=== PATIENT | male | born 1965 | race Hispanic/Latino ===

== ENCOUNTER 2017-06-26 13:24 | Emergency (ER) | payer SELFPAY ==
[2017-06-26] MEDS ORDERED: SMZ./TMP. 800/160 MG TABLET ONE (15:02)
--- NOTE | 2017-06-26 15:10 | EDPHYS ---
Physician Documentation [facility] Name: Jorgito Cox Age: 52 yrs Sex: Male : 1965 Arrival Date: 06/26/2017 Time: 13:25 Bed 12 Private MD: ED Physician Fox Diehl HPI: 06/26 15:05 This 52 yrs old Male presents to ER via Ambulatory with complaints of Insect kb Bite. 15:05 The patient was bitten on the right lateral aspect of neck, by unknown insect. Onset: kb The symptoms/episode began/occurred 3 day(s) ago. Animal information: Patient/Caregiver not able to describe the spider. Secondary to the bite the patient reports erythema, swelling. Associated signs and symptoms: Pertinent positives: erythema at site, swelling at site, Pertinent negatives: bony tenderness, fever, fluctuance, loss of consciousness, motor deficit, numbness distal to wound, pain at site, suspected foreign body, tenderness. Severity of symptoms: At their worst the symptoms were mild, in the emergency department the symptoms are unchanged. The patient has not experienced similar symptoms in the past. The patient has not recently seen a physician. Pt reports he was bit by unknown insect on Tuesday while at work. Area was reddened and swollen at the time, now the redness has spread a bit. States he has noticed another reddened area near right clavicle, but does not think he was bitten there. . Historical: - Allergies: 13:30 No Known Allergies; la1 - PMHx: 13:30 None; la1 - Immunization history:: Adult Immunizations up to date. - Social history:: Smoking status: Patient/guardian denies using tobacco. ROS: 15:02 Constitutional: Negative for fever, chills, and weight loss, Cardiovascular: Negative kb for chest pain, palpitations, and edema, Respiratory: Negative for shortness of breath, cough, wheezing, and pleuritic chest pain, Abdomen/GI: Negative for abdominal pain, nausea, vomiting, diarrhea, and constipation, MS/Extremity: Negative for injury and deformity, Neuro: Negative for headache, weakness, numbness, tingling, and seizure. 15:02 Skin: Positive for erythema, swelling, of the right lateral aspect of neck. Exam: 15:02 Constitutional: This is a well developed, well nourished patient who is awake, alert, kb and in no acute distress. Head/Face: Normocephalic, atraumatic. Chest/axilla: Normal chest wall appearance and motion. Nontender with no deformity. No lesions are appreciated. Cardiovascular: Regular rate and rhythm with a normal S1 and S2. No gallops, murmurs, or rubs. Normal PMI, no JVD. No pulse deficits. Respiratory: Lungs have equal breath sounds bilaterally, clear to auscultation and percussion. No rales, rhonchi or wheezes noted. No increased work of breathing, no retractions or nasal flaring. Abdomen/GI: Soft, non-tender, with normal bowel sounds. No distension or tympany. No guarding or rebound. No evidence of tenderness throughout. MS/ Extremity: Pulses equal, no cyanosis. Neurovascular intact. Full, normal range of motion. Neuro: Awake and alert, GCS 15, oriented to person, place, time, and situation. Cranial nerves II-XII grossly intact. Motor strength 5/5 in all extremities. Sensory grossly intact. Cerebellar exam normal. Normal gait. 15:02 Skin: abscess, that is small, of the right lateral aspect of neck, with induration. Vital Signs: 13:30 BP 131 / 81; Pulse 75; Resp 16; Temp 97.0(TE); Pulse Ox 100% on R/A; Weight 99.79 kg; la1 Height 5 ft. 11 in. (180.34 cm); 13:30 Body Mass Index 30.68 (99.79 kg, 180.34 cm) la1 MDM: 14:56 Patient medically screened. kb 15:05 Data reviewed: vital signs, nurses notes. Data interpreted: Pulse oximetry: on room air kb is 100 %. Interpretation: normal. Counseling: I had a detailed discussion with the patient and/or guardian regarding: the historical points, exam findings, and any diagnostic results supporting the discharge/admit diagnosis, the need for outpatient follow up, a family practitioner, to return to the emergency department if symptoms worsen or persist or if there are any questions or concerns that arise at home. Administered Medications: 15:05 Drug: Bactrim (160 mg-800 mg (DS) 1 tablet Route: PO; ss Disposition: 06/27 09:25 Co-signature as Attending Physician, Fox Diehl MD I agree with the assessment and ralph plan of care. Disposition: 06/26/17 15:10 Discharged to Home. Impression: Local infection of the skin and subcutaneous tissue, unspecified. - Condition is Stable. - Discharge Instructions: Insect Bite, [id number], Wound Infection, [id number]. - Prescriptions for Bactrim DS 800- 160 mg Oral Tablet - take 1 tablet by ORAL route every 12 hours for 7 days; 14 tablet. - Medication Reconciliation Form, Thank You Letter, Antibiotic Education, Prescription Opioid Use form. - Follow up: Emergency Department; When: As needed; Reason: Worsening of condition. Follow up: Private Physician; When: 2 - 3 days; Reason: Recheck today's complaints, Continuance of care, Re-evaluation by your physician. Signatures: Annie Bonilla, CREATIVE ARTS MUSIC THERAPIST-C CREATIVE ARTS MUSIC THERAPIST-Fox Meza MD MD cha Smirch, Shelby, RAYMON ENNIS ss Ramses Moraes RN RN la1
--- NOTE | 2017-06-26 15:10 | ER ---
Nurse's Notes [facility] Name: Jorgito Cox Age: 52 yrs Sex: Male : 1965 Arrival Date: 06/26/2017 Time: 13:25 Bed 12 Private MD: Diagnosis: Local infection of the skin and subcutaneous tissue, unspecified Presentation: 06/26 13:29 Presenting complaint: Patient states: I got bit by something on the right side of my la1 neck on Tuesday. Small area of redness noted. Transition of care: patient was not received from another setting of care. Onset of symptoms was June 26, 2017. Initial Sepsis Screen: Does the patient meet any 2 criteria? No. Patient's initial sepsis screen is negative. Does the patient have a suspected source of infection? No. Patient's initial sepsis screen is negative. Care prior to arrival: None. 13:29 Method Of Arrival: Ambulatory la1 13:29 Acuity: TATIANNA 5 la1 Historical: - Allergies: 13:30 No Known Allergies; la1 - PMHx: 13:30 None; la1 - Immunization history:: Adult Immunizations up to date. - Social history:: Smoking status: Patient/guardian denies using tobacco. Screenin:58 Abuse screen: Denies threats or abuse. Denies injuries from another. Nutritional ss screening: No deficits noted. Tuberculosis screening: Never had TB. Fall Risk None identified. Assessment: 14:58 General: Appears in no apparent distress. comfortable, Behavior is calm, cooperative, ss Denies fever, feeling ill, fatigue, chills. Pain: Complains of pain in R side of neck, where abscess is. Pain currently is 5 out of 10 on a pain scale. Quality of pain is described as tender, throbbing, Pain began 2 days Is continuous. Neuro: Level of Consciousness is awake, alert, obeys commands, Oriented to person, place, time, situation. Respiratory: Airway is patent Trachea midline Respiratory effort is even, unlabored, Respiratory pattern is regular, symmetrical, Breath sounds are clear bilaterally. GI: Patient currently denies abdominal pain, diarrhea, nausea, vomiting. EENT: Throat is clear. Derm: Skin is healthy with good turgor, Skin is pink, warm \T\ dry. normal, Abscess located on R side of neck, quarter in size, an additional what appears to be insect bite noted to be dime size on neck. Musculoskeletal: Circulation, motion, and sensation intact. Range of motion: intact in all extremities, Swelling absent. Vital Signs: 13:30 BP 131 / 81; Pulse 75; Resp 16; Temp 97.0(TE); Pulse Ox 100% on R/A; Weight 99.79 kg; la1 Height 5 ft. 11 in. (180.34 cm); 13:30 Body Mass Index 30.68 (99.79 kg, 180.34 cm) la1 ED Course: 13:25 Patient arrived in ED. as 13:30 Triage completed. la1 13:30 Arm band placed on left wrist. la1 14:56 Annie Bonilla FNP-C [facility]. kb 14:56 Fox Diehl MD is Attending Physician. kb 14:58 Michelle Campbell, RN is Primary Nurse. ss 14:58 Patient has correct armband on for positive identification. Bed in low position. Call ss light in reach. 15:15 No provider procedures requiring assistance completed. Patient did not have IV access la1 during this emergency room visit. Administered Medications: 15:05 Drug: Bactrim (160 mg-800 mg (DS) 1 tablet Route: PO; ss Outcome: 15:10 Discharge ordered by . kb 15:15 Discharged to home ambulatory. la1 15:15 Condition: stable 15:15 Discharge instructions given to patient, Instructed on discharge instructions, follow up and referral plans. medication usage, Demonstrated understanding of instructions, follow-up care, medications, Prescriptions given X 1. 15:16 Patient left the ED. la1 Signatures: Annie Bonilla FNP-C FNP-Gregoria Johnson as Michelle Campbell, RN RN Ramses Moraes RN RN la1
== END 2017-06-26 15:16 | disposition home or self-care (01) ==
LOC: ER 13:24
DX: L08.9 Local infection of the skin and subcutaneous tissue, unspecified (principal)
CPT/HCPCS: 99283

== ENCOUNTER 2017-09-25 00:02 | Emergency (ER) | payer SELFPAY ==
[2017-09-25] MEDS ORDERED: CEFAZOLIN/SWI 1gm 1 GM/10 ML SYR ONE (00:15)
[2017-09-25] MEDS ORDERED: TETANUS & DIPHTHERIA TOX,ADULT 0.5 ML VIAL ONE (00:15)
[2017-09-25] MEDS ORDERED: MORPHINE 4 MG/ML SYR ONE (00:46)
[2017-09-25] MEDS ORDERED: ONDANSETRON 4 MG/2 ML VIAL ONE (00:46)
[2017-09-25] MEDS ORDERED: NA CHLORIDE 0.9% 1,000 ML ONE (00:57)
[2017-09-25 01:18] LABS: Absolute Lymphocytes (CBC) 2.7 K/uL (0.7-4.9); Absolute Monocytes 0.5 K/uL (0.1-1.3); Absolute Neutrophil 2.6 K/uL (1.8-8.0); Basophils % 0.7 % (0-1.3); Eosinophils % 3.7 % (0-4.4); Hematocrit 40.3 % (39.6-49.0); MCH 30.6 pg (27.0-35.0); MCV 87.2 fL (80-100); MPV 9.3 fL (7.6-11.3); Monocytes % 7.7 % (3.3-12.3); RBC Red Blood Cell Count 4.63 M/uL (4.33-5.43)
--- NOTE | 2017-09-25 01:28 | EDPHYS ---
Physician Documentation [facility] Name: Jorgito Cox Age: 52 yrs Sex: Male : 1965 Arrival Date: 09/25/2017 Time: 00:03 Bed 4 Private MD: ED Physician Stevenson Miller HPI: 09/25 00:36 This 52 yrs old Male presents to ER via Ambulatory with complaints of pkl Laceration. 00:36 The patient or guardian reports injury. The complaints affect the left thumb and left pkl index finger. Context: resulted from cut by table saw. Onset: The symptoms/episode began/occurred just prior to arrival. Historical: - Allergies: 00:26 No Known Allergies; tl2 - Home Meds: 00:26 None [Active]; tl2 - PMHx: 00:26 None; tl2 - PSHx: 00:26 None; tl2 - Immunization history:: Adult Immunizations up to date, Last tetanus immunization: > 10 years ago. - Social history:: Smoking status: Patient/guardian denies using tobacco. - Ebola Screening: : No symptoms or risks identified at this time. ROS: 00:36 Eyes: Negative for injury, pain, redness, and discharge, ENT: Negative for injury, pkl pain, and discharge, Neck: Negative for injury, pain, and swelling, Cardiovascular: Negative for chest pain, palpitations, and edema, Respiratory: Negative for shortness of breath, cough, wheezing, and pleuritic chest pain, Abdomen/GI: Negative for abdominal pain, nausea, vomiting, diarrhea, and constipation, Back: Negative for injury and pain, : Negative for injury, bleeding, discharge, and swelling. 00:36 MS/extremity: Positive for injury or acute deformity, laceration, of the left thumb and index finger. 00:36 Neuro: Negative for altered mental status. Exam: 00:36 Head/Face: Normocephalic, atraumatic. Eyes: Pupils equal round and reactive to light, pkl extra-ocular motions intact. Lids and lashes normal. Conjunctiva and sclera are non-icteric and not injected. Cornea within normal limits. Periorbital areas with no swelling, redness, or edema. ENT: Nares patent. No nasal discharge, no septal abnormalities noted. Tympanic membranes are normal and external auditory canals are clear. Oropharynx with no redness, swelling, or masses, exudates, or evidence of obstruction, uvula midline. Mucous membranes moist. Neck: Trachea midline, no thyromegaly or masses palpated, and no cervical lymphadenopathy. Supple, full range of motion without nuchal rigidity, or vertebral point tenderness. No Meningismus. Chest/axilla: Normal chest wall appearance and motion. Nontender with no deformity. No lesions are appreciated. Cardiovascular: Regular rate and rhythm with a normal S1 and S2. No gallops, murmurs, or rubs. Normal PMI, no JVD. No pulse deficits. Respiratory: Lungs have equal breath sounds bilaterally, clear to auscultation and percussion. No rales, rhonchi or wheezes noted. No increased work of breathing, no retractions or nasal flaring. Abdomen/GI: Soft, non-tender, with normal bowel sounds. No distension or tympany. No guarding or rebound. No evidence of tenderness throughout. Back: No spinal tenderness. No costovertebral tenderness. Full range of motion. Neuro: Awake and alert, GCS 15, oriented to person, place, time, and situation. Cranial nerves II-XII grossly intact. Motor strength 5/5 in all extremities. Sensory grossly intact. Cerebellar exam normal. Normal gait. 00:36 Musculoskeletal/extremity: Extremities: grossly normal except: noted in the left thumb: pain, tenderness, jagged laceration ( 4 cm ). 00:36 Musculoskeletal/extremity: Extremities: noted in the left index finger: decreased pkl ROM, pain, tenderness, jagged laceration ( 6 cm ) with tendons lacerations. Vital Signs: 00:10 BP 125 / 79; Pulse 88; Resp 18; Temp 98.7; Pulse Ox 99% on R/A; Weight 99.79 kg; Height tl2 5 ft. 11 in. (180.34 cm); Pain 9/10; 01:08 BP 120 / 71; Pulse 70; Resp 18 S; Pulse Ox 98% on R/A; Pain 7/10; ea 02:19 BP 136 / 89; Pulse 68; Resp 18; Temp 98; Pulse Ox 99% on R/A; ea 00:10 Body Mass Index 30.68 (99.79 kg, 180.34 cm) tl2 MDM: 00:10 Patient medically screened. pkl 01:24 Data reviewed: vital signs, nurses notes, lab test result(s), radiologic studies, plain pkl films. 09/25 00:35 Order name: CBC with Diff; Complete Time: 01:24 pkl 09/25 00:35 Order name: Chem 7; Complete Time: 02:37 pkl 09/25 00:10 Order name: Hand Left 3 View XRAY rg2 Administered Medications: 00:15 Drug: Ancef 1 grams Route: IVPB; Site: right forearm; tl2 01:00 Follow up: Response: No adverse reaction; IV Status: Completed infusion ea 00:18 Drug: Tetanus-Diphtheria Toxoid Adult 0.5 ml {Fuse Maker: [employer]. Exp: tl2 11/24/2019. Lot #: [id number]. } Route: IM; Site: right deltoid; 00:58 Follow up: Response: No adverse reaction ea 00:54 Drug: Zofran 4 mg Route: IVP; Site: right antecubital; ea 01:15 Follow up: Response: No adverse reaction ea 00:55 Drug: morphine 2 mg Route: IVP; Site: right antecubital; ea 01:15 Follow up: Response: No adverse reaction; Pain is decreased ea 00:58 Drug: NS 0.9% 1000 ml Route: IV; Rate: 125 ml/hr; Site: right antecubital; ea 01:42 Follow up: Response: No adverse reaction; IV Status: Infusion continued upon transfer ea Disposition: 09/25/17 01:27 Transfer ordered to [facility]. Diagnosis is Compound fractures left thumb and index finger with tendons laceration. - Reason for transfer: Higher level of care. - Accepting physician is Dr. Sahil Nagel. - Condition is Stable. - Problem is new. - Symptoms are unchanged. Signatures: Dispatcher [employer] EDStevenson Lopez MD MD pkl Knox, Taylor, RN RN jose [email or web address] Magdalena Hernandez RN RN simone Corrections: (The following items were deleted from the chart) 00:51 00:36 Musculoskeletal/extremity: Extremities: pain, pkl pkl 02:21 01:27 09/25/2017 01:27 Transfer ordered to [facility]. Diagnosis is Compound ea fractures left thumb and index finger with tendons laceration. Reason for transfer: Higher level of care. Accepting physician is Dr. Sahil Nagel. Condition is Stable. Problem is new. Symptoms are unchanged. pkl
--- NOTE | 2017-09-25 01:28 | ER ---
Nurse's Notes [facility] Name: Jorgito Cox Age: 52 yrs Sex: Male : 1965 Arrival Date: 09/25/2017 Time: 00:03 Bed 4 Private MD: Diagnosis: Compound fractures left thumb and index finger with tendons laceration Presentation: 09/25 00:17 Presenting complaint: Patient states: Patient reports about 30 minutes ago he was tl2 cutting wood with a table saw, the wood slipped out of his left pointer and thumb hit the blades. Transition of care: patient was not received from another setting of care. Complicating Factors:. Onset of symptoms was September 25, 2017. Risk Assessment: Do you want to hurt yourself or someone else? Patient reports no desire to harm self or others. Initial Sepsis Screen: Does the patient meet any 2 criteria?. 00:17 Method Of Arrival: Ambulatory tl2 00:17 Acuity: TATIANNA 3 tl2 00:17 Care prior to arrival: None. ea 01:05 Initial Sepsis Screen: Does the patient have a suspected source of infection? No. ea Patient's initial sepsis screen is negative. Triage Assessment: 00:10 General: Appears uncomfortable, Behavior is calm, cooperative, appropriate for age. tl2 Pain: Complains of pain in dorsal aspect of distal phalanx of left thumb, left index finger, dorsal aspect of distal phalanx of left index finger, dorsal aspect of middle phalanx of left index finger, dorsal aspect of proximal phalanx of left index finger and left thumbnail Pain currently is 8 out of 10 on a pain scale. Quality of pain is described as aching, Is continuous. EENT: No signs and/or symptoms were reported regarding the EENT system. Neuro: Level of Consciousness is awake, alert, obeys commands, Oriented to person, place, time, situation. Cardiovascular: Patient's skin is warm and dry. Respiratory: Airway is patent Respiratory effort is even, unlabored, Respiratory pattern is regular, symmetrical. Injury Description: Laceration sustained to dorsal aspect of distal phalanx of left thumb, dorsal aspect of proximal phalanx of left thumb, dorsal aspect of distal phalanx of left index finger, dorsal aspect of middle phalanx of left index finger and dorsal aspect of proximal phalanx of left index finger is jagged, bleeding moderately, was sustained less than 30 minutes ago. is bleeding moderately. Historical: - Allergies: 00:26 No Known Allergies; tl2 - Home Meds: 00:26 None [Active]; tl2 - PMHx: 00:26 None; tl2 - PSHx: 00:26 None; tl2 - Immunization history:: Adult Immunizations up to date, Last tetanus immunization: > 10 years ago. - Social history:: Smoking status: Patient/guardian denies using tobacco. - Ebola Screening: : No symptoms or risks identified at this time. Screenin:16 Abuse screen: Denies threats or abuse. Nutritional screening: No deficits noted. tl2 Tuberculosis screening: No symptoms or risk factors identified. Fall Risk None identified. Assessment: 01:02 Reassessment: Patient and/or family updated on plan of care and expected duration. Pain ea level reassessed. Patient is alert, oriented x 3, equal unlabored respirations, skin warm/dry/pink. Musculoskeletal: Bony deformity noted of dorsal aspect of distal phalanx of left index finger, dorsal aspect of middle phalanx of left index finger and dorsal aspect of proximal phalanx of left index finger. Injury Description: Laceration sustained to left index finger and left thumb is jagged. 01:39 Reassessment: Report called to Marilynn ENNIS from [facility] ED. ea 02:15 Reassessment: Patient and/or family updated on plan of care and expected duration. Pain ea level reassessed. Patient is alert, oriented x 3, equal unlabored respirations, skin warm/dry/pink. EMS at facility for transfer. Patient states symptoms have improved. Vital Signs: 00:10 BP 125 / 79; Pulse 88; Resp 18; Temp 98.7; Pulse Ox 99% on R/A; Weight 99.79 kg; Height tl2 5 ft. 11 in. (180.34 cm); Pain 9/10; 01:08 BP 120 / 71; Pulse 70; Resp 18 S; Pulse Ox 98% on R/A; Pain 7/10; ea 02:19 BP 136 / 89; Pulse 68; Resp 18; Temp 98; Pulse Ox 99% on R/A; ea 00:10 Body Mass Index 30.68 (99.79 kg, 180.34 cm) tl2 ED Course: 00:03 Patient arrived in ED. ds1 00:10 Stevenson Miller MD is Attending Physician. pkl 00:10 Patient has correct armband on for positive identification. Bed in low position. Call tl2 light in reach. Side rails up X 1. 00:17 Arm band placed on right wrist. Patient placed in an exam room, on a stretcher. tl2 00:20 Inserted saline lock: 20 gauge in right antecubital area, using aseptic technique. oe Blood collected. 00:21 Triage completed. tl2 00:27 X-ray completed. Portable x-ray completed in exam room. Patient tolerated procedure kp1 well. 00:28 Hand Left 3 View XRAY In Process Unspecified. EDMS 00:34 Leslie Krause, RAYMON is Primary Nurse. tl2 01:40 No provider procedures requiring assistance completed. Patient transferred, IV remains ea in place. Administered Medications: 00:15 Drug: Ancef 1 grams Route: IVPB; Site: right forearm; tl2 01:00 Follow up: Response: No adverse reaction; IV Status: Completed infusion ea 00:18 Drug: Tetanus-Diphtheria Toxoid Adult 0.5 ml {Basketball Coach: [employer]. Exp: tl2 11/24/2019. Lot #: [id number]. } Route: IM; Site: right deltoid; 00:58 Follow up: Response: No adverse reaction ea 00:54 Drug: Zofran 4 mg Route: IVP; Site: right antecubital; ea 01:15 Follow up: Response: No adverse reaction ea 00:55 Drug: morphine 2 mg Route: IVP; Site: right antecubital; ea 01:15 Follow up: Response: No adverse reaction; Pain is decreased ea 00:58 Drug: NS 0.9% 1000 ml Route: IV; Rate: 125 ml/hr; Site: right antecubital; ea 01:42 Follow up: Response: No adverse reaction; IV Status: Infusion continued upon transfer ea Outcome: 01:27 ER care complete, transfer ordered by . pksade 01:40 Instructed on the need for transfer, Demonstrated understanding of instructions. ea 02:17 Transferred by ground EMS to [facility] [place], [place], Transfer form ea completed. X-rays sent w/ patient. 02:17 Condition: stable 02:21 Patient left the ED. ea Signatures: Dispatcher [employer] EDCO Miller, Pin, Taina Thorpe MD ds1 Leslie Krause, RN RN tl2 Moncho Sena Kathy kp1 Magdalena Hernandez RN RN ea
[2017-09-25 01:29] LABS: BUN Blood Urea Nitrogen 14 mg/dL (7-18); Bicarbonate 28 mmol/L (21-32); Glucose Level 103 mg/dL (74-106); Potassium 3.5 mmol/L (3.5-5.1); Sodium Level 144 mmol/L (136-145)
--- NOTE | 2017-09-25 08:24 | RAD REPORT ---
EXAM DESCRIPTION: RAD - Hand Left 3 View - 09/25/2017 12:28 am CLINICAL HISTORY: Laceration, injury, table salt accident COMPARISON: None. FINDINGS: Comminuted fracture of the second middle phalanx is present. There is a long fracture line along the length of the middle phalanx with numerous small fracture fragments present. Fracture or b one defect involves the head of the second proximal phalanx and the ulna side base of the distal phal anx. Gross soft tissue wound present. No foreign body in the soft tissues. Soft tissue wound involves the distal stomach. Numerous small fracture fragments involve the first di stal phalanx. The third- fifth phalanges are intact. Metacarpal and carpal bones are intact. IMPRESSION: Comminuted fractures of the first distal phalanx and second middle phalanx. Fracture deformities of the second proximal phalanx head and second distal phalanx base.
== END 2017-09-25 02:21 | disposition short-term general hospital (02) ==
LOC: ER 00:02
DX: S61.211A Laceration without foreign body of left index finger without damage to nail, initial encounter (principal); W31.2XXA Contact with powered woodworking and forming machines, initial encounter; Y93.89 Activity, other specified; Y92.9 Unspecified place or not applicable
CPT/HCPCS: 36415; 80048; 85025; 90714; 96361; 96365; 96375; 99285; J0690; J2405; J7030